=== PATIENT | female | born 1940 | race Caucasian/White ===

== ENCOUNTER → 2017-01-11 | Outpatient (CLI) | payer MEDICARE, BC ==
[2017-01-11 10:40] LABS: INR 2.5; PROTHROMBIN TIME (PATIENT) 26.9 SECONDS (10.0-11.7)
== END | disposition home or self-care (01) ==
LOC: CLAB 09:22
PROVIDERS: Internal Medicine Cardiovascular Disease
DX: Z51.81 Encounter for therapeutic drug level monitoring (principal); I48.91 Unspecified atrial fibrillation; Z79.01 Long term (current) use of anticoagulants
CPT/HCPCS: 36415; 85610; 85730

== ENCOUNTER → 2017-01-18 | Outpatient (CLI) | payer MEDICARE, BC ==
[2017-01-18 10:16] LABS: INR 2.7; PARTIAL THROMBOPLASTIN TIME 41.5 SECONDS (23.5-31.3); PROTHROMBIN TIME (PATIENT) 28.9 SECONDS (10.0-11.7)
== END | disposition home or self-care (01) ==
LOC: CLAB 09:20
PROVIDERS: Internal Medicine Cardiovascular Disease
DX: Z51.81 Encounter for therapeutic drug level monitoring (principal); I48.91 Unspecified atrial fibrillation; Z79.01 Long term (current) use of anticoagulants
CPT/HCPCS: 36415; 85610; 85730